=== PATIENT | female | born 1990 | race American Indian/Alaskan Native ===

== ENCOUNTER 2017-07-29 14:07 | Emergency (ER) | payer BC ==
[2017-07-29 15:15] LABS: Bilirubin,Urine NEG (Negative); Blood,Urine NEG (Negative); Color,Urine Yellow (Yellow); Mucus,Urine FEW /HPF; Protein,Urine <15 mg/dL mg/dL (Negative); Urobilinogen,Urine < 2.0 mg/dL (<2.0)
--- NOTE | 2017-07-29 15:52 | Emergency Department Report ---
Chief Complaint: Abdominal Pain Stated Complaint: with pain Time Seen by Provider: 07/29/17 15:50 - HPI History of Present Illness: 26-year-old female presents to the emergency department with complaint of some lower abdominal discomfort at about 14 weeks' . With this she is with one previous . She has some nausea without vomiting and has a headache. The nausea is pretty common for her. Headache is generalized and about 5 out of 10 currently. She took some Tylenol for her discomfort without much relief. Her EMS MANAGER is Dr. Rosa Delgadillo. Otherwise she denies any other past medical history. - ROS Review of Systems: Positive for abdominal pain, , nausea, headache Negative for vaginal bleeding, vaginal discharge, fever, back pain - Exam Vital Signs: Vital Signs 07/29/17 14:10 Temperature 98.7 F Pulse Rate 86 Blood Pressure 129/77 O2 Sat by Pulse 96 Oximetry Physical Exam: She is awake and alert in no acute distress. Heart and lungs sounds are normal to auscultation. MSE screening note: Focused history and physical exam performed. Due to findings the following was ordered: Patient has a CBC, CMP, urinalysis, U Preg and she will have a obstetric ultrasound done. ED Disposition for MSE Condition: Stable Instructions: Abdominal Pain (ED) Referrals: RAUL DANIELLE MD [Primary Care Provider] - 3-5 Days
[2017-07-29 16:09] LABS: Basophils % (Auto) 0.3 % (0.0-1.8); Eosinophils # (Auto) 0.1 K/mm3 (0.0-0.4); Eosinophils % (Auto) 0.8 % (0.0-4.3); Hematocrit 38.2 % (30.3-42.9); Hemoglobin 13.4 gm/dl (10.1-14.3); Lymphocytes # (Auto) 1.3 K/mm3 (1.2-5.4); Lymphocytes % (Auto) 15.5 % (13.4-35.0); Mean Corpuscular HGB Conc 35 % (30-34); Mean Corpuscular Hemoglobin 34 pg (28-32); Mean Corpuscular Volume 97 fl (79-97); Monocytes # (Auto) 0.6 K/mm3 (0.0-0.8); Monocytes % (Auto) 7.6 % (0.0-7.3); Platelet Count 228 K/mm3 (140-440); Red Blood Count 3.95 M/mm3 (3.65-5.03); Red Cell Distribution Width 13.2 % (13.2-15.2)
[2017-07-29 16:22] LABS: Alanine Aminotransferase 35 units/L (7-56); Albumin 3.8 g/dL (3.9-5); BUN/Creatinine Ratio 20; Blood Urea Nitrogen 8 mg/dL (7-17); Hemolysis Index 8
--- NOTE | 2017-07-29 17:52 | Ultrasound Report ---
FINAL REPORT PROCEDURE: Obstetrical ultrasound. TECHNIQUE: Real-time transabdominal sonography of the uterus, placenta, amniotic fluid, adnexa, and fetus was performed with image documentation. Measurements were obtained to determine age/size. M-mode Doppler was used to document heartbeat. CPT 98598 HISTORY: , abdominal pain. COMPARISON: No prior studies are available for comparison. FINDINGS: There is a single viable intrauterine fetus in breech presentation. Cardiac activity is documented at 151 beats per minute. It is too early to do a anatomical survey. The amniotic fluid volume appears normal. The placenta is anterior in location and fairly low lying. There is no definite placenta previa. The placental grade is 0. The measured parameters are as follows: Biparietal diameter 2.8 centimeters, head circumference 10.5 centimeters, abdominal circumference 8.2 centimeters, femur length 1.3 centimeters. The calculated menstrual age is 14 weeks 4 days. The estimated date of confinement is 01/23/2018. The cervix measures 4.7 centimeters in length. Both ovaries appear normal in size and demonstrate normal color flow. IMPRESSION: Single viable intrauterine fetus in breech presentation with a menstrual age of 14 weeks 4 days.
--- NOTE | 2017-07-29 19:27 | Emergency Department Report ---
ED Abdominal Pain HPI - General Chief Complaint: Abdominal Pain Stated Complaint: with pain Time Seen by Provider: 07/29/17 15:50 Source: patient Mode of arrival: Ambulatory Limitations: No Limitations - History of Present Illness Initial Comments: 26-year-old female presents to the emergency department with complaint of some lower abdominal discomfort at about 14 weeks' . With this she is with one previous . She has some nausea without vomiting and has a headache. The nausea is pretty common for her. Headache is generalized and about 5 out of 10 currently. She took some Tylenol for her discomfort without much relief. Her [employer]AD is Dr. Rosa Delgadillo. Otherwise she denies any other past medical history. -: days(s) (1) Location: suprapubic Radiation: none Migration to: no migration Severity scale (0 -10): 5 Quality: sharp, other (sore) Consistency: intermittent Improves With: nothing Worsens With: nothing Associated Symptoms: nausea Treatments Prior to Arrival: other (tylenol) - Related Data Previous Rx's Medication Instructions Recorded Last Taken Type Clindamycin [Clindamycin CAP] 300 mg PO Q8H #21 cap 07/29/17 Unknown Rx Allergies Allergy/AdvReac Type Severity Reaction Status Date / Time furosemide [From Lasix] AdvReac Swelling Verified 07/29/17 14:15 naproxen AdvReac Shortness Verified 07/29/17 14:15 of Breath ED Review of Systems ROS: Stated complaint: with pain Other details as noted in HPI Constitutional: denies: chills, fever Eyes: denies: eye pain, eye discharge, vision change ENT: denies: ear pain, throat pain Respiratory: denies: cough, shortness of breath, wheezing Cardiovascular: denies: chest pain, palpitations Endocrine: no symptoms reported Gastrointestinal: abdominal pain, nausea Genitourinary: denies: urgency, dysuria, discharge Musculoskeletal: denies: back pain, joint swelling, arthralgia Skin: denies: rash, lesions Neurological: denies: headache, weakness, paresthesias Psychiatric: denies: anxiety, depression Hematological/Lymphatic: denies: easy bleeding, easy bruising ED Past Medical Hx - Past Medical History Additional medical history: pt is 14 weeks pregeant - Social History Smoking Status: Never Smoker Substance Use Type: None - Medications Home Medications: Home Medications Medication Instructions Recorded Confirmed Last Taken Type Clindamycin [Clindamycin CAP] 300 mg PO Q8H #21 cap 07/29/17 Unknown Rx ED Physical Exam - General Limitations: No Limitations General appearance: alert, in no apparent distress - Head Head exam: Present: atraumatic, normocephalic - Eye Eye exam: Present: normal appearance - ENT ENT exam: Present: mucous membranes moist - Neck Neck exam: Present: normal inspection - Respiratory Respiratory exam: Present: normal lung sounds bilaterally. Absent: respiratory distress - Cardiovascular Cardiovascular Exam: Present: regular rate, normal rhythm. Absent: systolic murmur, diastolic murmur, rubs, gallop - GI/Abdominal GI/Abdominal exam: Present: soft. Absent: distended, tenderness - Speculum exam: Present: vaginal discharge, cervical discharge Bi-manual exam: Present: normal bi-manual exam. Absent: cervical motion tendernes, adnexal tenderness, adnexal mass - Extremities Exam Extremities exam: Present: normal inspection - Back Exam Back exam: Present: normal inspection - Neurological Exam Neurological exam: Present: alert, oriented X3 - Psychiatric Psychiatric exam: Present: normal affect, normal mood - Skin Skin exam: Present: warm, dry, intact, normal color. Absent: rash ED Course Vital Signs 07/29/17 14:10 Temperature 98.7 F Pulse Rate 86 Blood Pressure 129/77 O2 Sat by Pulse 96 Oximetry ED Medical Decision Making - Lab Data Result diagrams: 07/29/17 15:53 07/29/17 15:53 - Radiology Data Radiology results: report reviewed, image reviewed FINDINGS: There is a single viable intrauterine fetus in breech presentation. Cardiac activity is documented at 151 beats per minute. It is too early to do a anatomical survey. The amniotic fluid volume appears normal. The placenta is anterior in location and fairly low lying. There is no definite placenta previa. The placental grade is 0. The measured parameters are as follows: Biparietal diameter 2.8 centimeters, head circumference 10.5 centimeters, abdominal circumference 8.2 centimeters, femur length 1.3 centimeters. The calculated menstrual age is 14 weeks 4 days. The estimated date of confinement is 01/23/2018. The cervix measures 4.7 centimeters in length. Both ovaries appear normal in size and demonstrate normal color flow. IMPRESSION: Single viable intrauterine fetus in breech presentation with a menstrual age of 14 weeks 4 days. Transcribed By: [facility]M Dictated By: JOVANA SUÁREZ MD Electronically Authenticated By: JOVANA SUÁREZ MD Signed Date/Time: 07/29/171746 DD/ 46 TD/TT: 07/29/171746 - Medical Decision Making Patient has been evaluated by this provided as well as Dr. Keene. Ultrasound was ordered a pelvic exam is completed labs are completed. Urinalysis is unremarkable. We are waiting for wet prep. Critical care attestation.: If time is entered above; I have spent that time in minutes in the direct care of this critically ill patient, excluding procedure time. ED Disposition Clinical Impression: with 14 completed weeks gestation, BV (bacterial vaginosis) Disposition: - TO HOME OR SELFCARE Is pt being admited?: No Does the pt Need Aspirin: No Condition: Stable Instructions: Abdominal Pain (ED), Bacterial Vaginosis (ED) Additional Instructions: Please take medication as prescribed. Follow up with [employer]. You can take Tylenol for pain. Prescriptions: Clindamycin [Clindamycin CAP] 300 mg PO Q8H #21 cap Referrals: RAUL DANIELLE MD [Primary Care Provider] - 3-5 Days ROSA MCCALL MD [Staff Physician] - 3-5 Days Forms: STI Treatment and Prevention
[2017-07-29 19:37] LABS: HCG Qualitative,Urine Positive (Negative)
[2017-07-29 21:23] VITALS: BP 114/76
== END 2017-07-29 21:20 | disposition home or self-care (01) ==
LOC: ED 14:07
DX: O26.891 Other specified pregnancy related conditions, first trimester (principal); N76.0 Acute vaginitis; Z3A.14 14 weeks gestation of pregnancy; Z88.8 Allergy status to other drugs, medicaments and biological substances
CPT/HCPCS: 36415; 76805; 80053; 81001; 81025; 85025; 87210; 87591